=== PATIENT | female | born 1995 | race Caucasian/White ===

== ENCOUNTER 2016-10-20 09:06 | Emergency (ER) | payer MEDICAID ==
[2016-10-20] MEDS ORDERED: KETOROLAC 30 MG/1 ML ONE (09:33)
[2016-10-26] MEDS ORDERED: ALBU18HF IH (14:07)
== END 2016-10-20 11:37 ==
LOC: ED 09:06
DX: R07.89 Other chest pain (principal); J45.909 Unspecified asthma, uncomplicated; Z87.891 Personal history of nicotine dependence
CPT/HCPCS: 93005; 99283